=== PATIENT | male | born 1980 | race African-American/Black ===

== ENCOUNTER 2022-08-14 00:07 | Emergency (ER) | payer OTHER ==
[2022-08-14 00:13] VITALS: BP 126/68; PULSE 74; RESP 14; TEMP 97.2; BMI 29.5
[2022-08-14] MEDS ORDERED: NAPROXEN 500 MG TABLET PO ONE (00:34)
[2022-08-14] MEDS ORDERED: NAPROXEN 500 MG TABLET ONE (00:36)
== END 2022-08-14 00:40 | disposition home or self-care (01) ==
LOC: FER 00:07
DX: M54.6 Pain in thoracic spine (principal)
CPT/HCPCS: 99283-25

== ENCOUNTER 2023-01-16 20:40 | Emergency (ER) | payer OTHER ==
[2023-01-16 20:44] VITALS: BP 129/72; PULSE 77; RESP 16; TEMP 97.8; BMI 31.6
[2023-01-17] MEDS ORDERED: NEOMYCIN/COLISTIN/HC OTIC SUSP 5 ML BOTTLE AD ONE (22:36)
== END 2023-01-16 22:52 | disposition home or self-care (01) ==
LOC: JERFT 20:40
DX: H92.01 Otalgia, right ear (principal); T70.0XXA Otitic barotrauma, initial encounter; H60.91 Unspecified otitis externa, right ear; R09.81 Nasal congestion
CPT/HCPCS: 99282-25